=== PATIENT | female | born 1945 | race Caucasian/White ===

== ENCOUNTER → 2018-01-21 08:05 | Outpatient (CLI) | payer MEDICARE, OTHER, SELFPAY ==
--- NOTE | 2018-01-21 08:09 | DI.US.S_ITS ---
PROCEDURE: US CAROTID DOPPLER BI INDICATIONS: LEFT BRUIT TECHNIQUE: Color and pulse Doppler interrogation was performed of both carotid systems, with image documentation and velocity measurements. COMPARISON: None. FINDINGS: Stenosis calculations are based on SRU (S[employer] in Ul[employer]) criteria. Right side: Brachial blood pressure: 154% 5 mm Hg. Common carotid artery peak systolic velocity: 60 cm/sec. Internal carotid artery peak systolic velocity: 63 cm/sec. Internal carotid artery end diastolic velocity: 20 cm/sec. External carotid artery peak systolic velocity: 64 cm/sec. ICA/CCA peak systolic ratio: 1.0. Crouch scale imaging description: Moderate soft plaque, mild calcific plaque Percent internal carotid artery stenosis: Less than 50% stenosis. Vertebral artery: Flow direction is antegrade. Left side: Brachial blood pressure: 137/67 mm Hg. Common carotid artery peak systolic velocity: 62 cm/sec. Internal carotid artery peak systolic velocity: 86 cm/sec. Internal carotid artery end diastolic velocity: 31 cm/sec. External carotid artery peak systolic velocity: 68 cm/sec. ICA/CCA peak systolic ratio: 1.4. Crouch scale imaging description: Moderate calcific and soft plaque Percent internal carotid artery stenosis: Less than 50% stenosis. Vertebral artery: Flow direction is antegrade. IMPRESSION: Less than 50% stenosis within the proximal internal carotid arteries bilaterally. Dictated by: Cody Layne M.D. on 01/21/2018 at 9:34 Approved by: Cody Layne M.D. on 01/21/2018 at 9:35
--- NOTE | 2018-01-21 08:09 | DI.MRI.S_ITS ---
PROCEDURE: MR CERVICAL SPINE WO CON INDICATIONS: Neck pain with radiculopathy on right TECHNIQUE: Noncontrast sagittal T1 spin echo and T2 fast spin echo, sagittal STIR, foraminal oblique sagittal T2 fast spin echo, and axial gradient echo or T2 fast spin echo through the cervical spine. COMPARISON: None. FINDINGS: Image quality: Diagnostic, with note made of motion artifact. Alignment and Curvature: There is reversal of the normal cervical lordosis, with the apex at the C5 level. Bone Marrow: Marrow demonstrates normal overall signal. Spinal Cord: Visualized spinal cord has normal size and signal. No cerebellar tonsillar herniation. Paraspinous Soft Tissues: No paravertebral masses. Prevertebral soft tissues are normal in thickness. C2-C3: The disc height is relatively well-preserved. A mild degree of generalized disc osteophyte complex is seen. Mild facet joint hypertrophy is seen. There is mild left-sided and no significant right-sided neural foraminal narrowing seen. The central canal is widely patent. C3-C4: The disc height is well-preserved. Loss of disc signal is seen at this level. There is mild right-sided and moderate left-sided facet hypertrophy seen. There is moderate right-sided and moderate to severe left-sided neural foraminal narrowing seen. No significant central canal narrowing is seen. C4-C5: The disc height is well-preserved. Loss of disc signal is seen at this level. Moderate to prominent disc osteophyte complex is seen, which is eccentric to the right side. Mild to moderate facet is seen. Moderate to severe bilateral neural foraminal narrowing is seen. Moderate central canal narrowing is seen. C5-C6: Moderate to severe loss of disc height and disc signal are seen. Moderate disc bulge is seen, which is eccentric to the right. Moderate to severe bilateral neural foraminal narrowing is seen, left worse than right. Moderate central canal narrowing is seen. C6-C7: Moderate loss of disc height is seen. Loss of disc signal is seen. Mild to moderate disc bulge is seen. Mild facet joint hypertrophy is seen. Moderate bilateral neural foraminal narrowing is seen. Mild central canal narrowing is seen. C7-T1: No significant abnormality is seen. IMPRESSION: Cervical spine degenerative changes are seen, which are most prominent at the C5-C6 level. Dictated by: Ramone Park M.D. on 01/21/2018 at 8:58 Approved by: Ramone Park M.D. on 01/21/2018 at 9:05
== END ==
PROVIDERS: PCP Physician Assistant; Visit Provider Physician Assistant
DX: I65.23 Occlusion and stenosis of bilateral carotid arteries (principal); M50.122 Cervical disc disorder at C5-C6 level with radiculopathy; M48.02 Spinal stenosis, cervical region; R09.89 Other specified symptoms and signs involving the circulatory and respiratory systems
CPT/HCPCS: 72141; 93880